=== PATIENT | female | born 1985 | race Caucasian/White ===

== ENCOUNTER 2016-06-17 14:55 | Emergency (ER) | payer BC ==
[~2016-06-17] VITALS: Ht 167.6 cm; Wt 71.1 kg
[~2016-06-17 14:55] MED LIST: ATARAX,VISTARIL25 MG PO; AUGMENTIN875 MG PO; COREG6.25 M1 PO; DAILY VALUE1 EACH PO; LIDOCAINE20 MG/1 M5 PO; LORTAB 5-325 M1 EACH PO; MELATONIN5 M3 PO; MOTRIN600 MG PO; TRAMADOL HCL50 MG PO; VICOPROFEN1 TABLET PO
[2016-06-17 16:25] LABS: CHLORIDE 103 mEq/L (99-109); POTASSIUM 4.3 mEq/L (3.7-5.4)
[2016-06-17 16:26] LABS: SODIUM 137 mEq/L (136-147)
[2016-06-17 16:28] LABS: GLUCOSE 85 mg/dL (70-99)
[2016-06-17 16:29] LABS: ANION GAP 8 MEQ/L (2-14)
[2016-06-17 16:30] LABS: TOTAL BILIRUBIN 0.3 mg/dL (0.0-1.0)
[2016-06-17 16:31] LABS: ALKALINE PHOSPHATASE 67 IU/L (3-129); GFR ESTIMATE (CALCULATED) > 59 mL/min/
[2016-06-17 16:33] LABS: UREA NITROGEN (BUN) 9 mg/dL (9-23)
[2016-06-17 16:41] LABS: QUANTITATIVE HCG < 4.0 MIU/ML
[2016-06-17 16:52] LABS: HEMATOCRIT 29.4 % (36.0-46.0); HEMATOLOGY COMMENT 1 SMEAR COMPATIBLE; MCH 17.6 PG (29.0-34.0); MCHC 27.9 G/DL (30.0-36.0); MCV 63.1 FL (83-99); PLATELET COUNT 293 K/uL (156-360); RBC DIS.WIDTH-CV 19.1 % (11.8-14.6); RBC DIS.WIDTH-SD 42.3 % (39-53); RED BLOOD COUNT 4.66 M/uL (3.80-5.20); WHITE BLOOD COUNT 6.8 K/uL (4.1-10.2)
[2016-06-17] MEDS ORDERED: OXYCONTIN10 MG PO (17:21)
[2016-06-17] MEDS ORDERED: OXYCODONE HCL10 MG PO (17:21)
[2016-06-17] MEDS ORDERED: AMITIZA24 MICROGR PO (17:22)
[2016-06-17 17:55] LABS: ADD MIUA? YES; BILIRUBIN NEGATIVE; BLOOD NEGATIVE; COLOR YELLOW ((YELLOW)); GLUCOSE (STRIP) NEGATIVE; KETONES NEGATIVE; LEUKOCYTES TRACE; NITRITE NEGATIVE; PROTEIN (STRIP) TRACE; SPECIFIC GRAVITY 1.021 (1.000-1.030)
[2016-06-17 18:13] LABS: RED BLOOD CELLS NONE SEEN /HPF (0-5); WHITE BLOOD CELLS RARE /HPF (0-5)
[2016-06-17 18:14] LABS: BACTERIA 1+; CASTS NONE SEEN /LPF; CRYSTALS NONE SEEN; EPITHELIAL CELLS 2+; MUCUS NONE SEEN; UCUL ADDED? NO
[2016-06-18 00:17] VITALS: BP 142/101
== END 2016-06-18 00:19 | disposition home or self-care (01) ==
LOC: RME 14:55 → EME 14:55 → RME 06-18 00:19
DX: K59.00 Constipation, unspecified (principal); R10.32 Left lower quadrant pain; N83.201 Unspecified ovarian cyst, right side; R93.5 Abnormal findings on diagnostic imaging of other abdominal regions, including retroperitoneum; Z98.84 Bariatric surgery status; I10 Essential (primary) hypertension; Z85.41 Personal history of malignant neoplasm of cervix uteri
CPT/HCPCS: 74177; 80053; 81003; 84702; 85027; 99281; 99285; J2270; J2405; J7030

== ENCOUNTER 2016-10-05 11:18 | Emergency (ER) | payer BC ==
[~2016-10-05] VITALS: Ht 167.6 cm; Wt 69.1 kg
[~2016-10-05 11:18] MED LIST changes: +AMITIZA24 MICROGR PO; +OXYCODONE HCL10 MG PO; +OXYCONTIN10 MG PO
[2016-10-05] MEDS ORDERED: ZYRTEC10 M2 PO (12:37)
[2016-10-05] MEDS ORDERED: PREDNISONE20 MG PO (12:37)
[2016-10-05] MEDS ORDERED: MUCUS ER600 MG PO (12:37)
[2016-10-05] MEDS ORDERED: FLONASE16 G1 BOTH NARES (12:37)
[2016-10-05] MEDS ORDERED: MIRALAX17 GM PO (12:43)
[2016-10-05 12:45] VITALS: BP 149/98
== END 2016-10-05 12:52 | disposition home or self-care (01) ==
LOC: EME 11:18
DX: H65.02 Acute serous otitis media, left ear (principal); J30.2 Other seasonal allergic rhinitis; I10 Essential (primary) hypertension
CPT/HCPCS: 99281; 99283

== ENCOUNTER 2016-10-07 02:10 | Emergency (ER) | payer BC ==
[~2016-10-07] VITALS: Ht 167.6 cm; Wt 68.2 kg
[~2016-10-07 02:10] MED LIST changes: +FLONASE16 G1 BOTH NARES; +MIRALAX17 GM PO; +MUCUS ER600 MG PO; +PREDNISONE20 MG PO; +ZYRTEC10 M2 PO
[2016-10-07 04:04] VITALS: BP 135/90
== END 2016-10-07 04:04 | disposition home or self-care (01) ==
LOC: EME 02:10
DX: F41.0 Panic disorder [episodic paroxysmal anxiety] (principal); Z62.810 Personal history of physical and sexual abuse in childhood; I10 Essential (primary) hypertension; Z85.41 Personal history of malignant neoplasm of cervix uteri; Z98.84 Bariatric surgery status
CPT/HCPCS: 93005